=== PATIENT | male | born 1950 | race Caucasian/White ===

== ENCOUNTER → 2024-07-15 07:10 | Outpatient (REF) | payer OTHER, SELFPAY | LOC: RAD 07:10 | PROVIDERS: ATTENDING PHYSICIAN Internal Medicine Cardiovascular Disease; FAMILY PHYSICIAN Student in an Organized Health Care Education/Training Program | DX: I63.22 Cerebral infarction due to unspecified occlusion or stenosis of basilar artery (principal) | CPT/HCPCS: 76770 ==